=== PATIENT | female | born 1980 | race Caucasian/White ===

== ENCOUNTER → 2018-10-15 15:49 | Outpatient (CLI) | payer OTHER, MEDICAID, SELFPAY ==
[2018-10-15 16:12] LABS: Appearance Urine UA SL CLOUDY; Bilirubin Urine UA NEGATIVE (NEGATIVE); Color Urine UA YELLOW; Glucose Urine UA 2+ g/dL (Negative); Ketones Urine UA NEGATIVE (NEGATIVE); Leukocyte Esterase Urine UA TRACE (NEGATIVE); Nitrite Urine UA NEGATIVE (Negative); Occult Blood Urine UA TRACE-LYSED (Negative); Protein Urine UA TRACE (Negative); Specific Gravity Urine UA 1.025 (1.000-1.035); Urobilinogen Urine UA 0.2 E.U./dL (0.2); pH Urine UA 5.5 (4.5-8.0)
[2018-10-15 16:17] LABS: RBC Urine 1-5/HPF (0-5/HPF); Squamous Epithelial Cell Urine 10-30 /HPF; WBC Urine 30-100/HPF (0-5/HPF)
[2018-10-15 16:18] LABS: Bacteria Urine Moderate (10-30); Culture Indicated Urine Cult Not Indicated
== END ==
PROVIDERS: Family Provider Family Medicine; PCP Family Medicine; Visit Provider Family Medicine
DX: R30.0 Dysuria (principal)
CPT/HCPCS: 81003; 81015

== ENCOUNTER → 2019-09-16 11:45 | Outpatient (CLI) | payer OTHER, MEDICAID, SELFPAY ==
[2019-09-16 12:45] LABS: Add Manual Diff / Slide Review NO; Basophils Absolute Auto 0 /uL (0-100); Basophils Percent Auto 0.9 % (0-2); Eosinophils Absolute Auto 0 /uL (0-450); Hematocrit 35.3 % (36-46); Hemoglobin 12.2 g/dL (12.0-16.0); Lymphocytes Absolute Auto 1500 /uL (1100-4500); Lymphocytes Percent Auto 41.3 % (25-40); Mean Corpuscular HGB Conc 34.4 % (30-36); Mean Corpuscular Hemoglobin 29.7 PG (26-34); Mean Corpuscular Volume 86.3 fL (80-100); Monocytes Absolute Auto 200 /uL (0-900); Monocytes Percent Auto 5.6 % (3-14); Neutrophils Absolute Auto 1900 /uL (1500-7000); Neutrophils Percent Auto 51.2 % (50-75); Platelet Count 213 X10^3/uL (150-400); Red Blood Cell Count 4.09 X10^6/uL (4.0-5.2); White Blood Cell Count 3.7 X10^3/uL (4.5-11.0)
[2019-09-16 13:09] LABS: Alanine Aminotransferase 25 IU/L (<35); Albumin 4.6 g/dL (3.5-5.0); Albumin Globulin Ratio 1.6 (1.0-2.8); Alkaline Phosphatase 86 U/L (38-126); Aspartate Aminotransferase 32 IU/L (14-36); Bilirubin Total 0.5 mg/dL (0.2-1.3); Blood Urea Nitrogen 14 mg/dL (7-17); Calcium 9.6 mg/dL (8.4-10.2); Carbon Dioxide 30 mmol/L (22-32); Chloride 102 mmol/L (98-107); Cholesterol 277 mg/dL (140-199); Estimated Glomerular Filt Rate > 60.0 mL/min (>60); Globulin 2.9 g/dL (1.7-4.1); Glucose 151 mg/dL (70-100); HDL Cholesterol 64 mg/dL (40-60); HEMOLYSIS < 15 (0-50); LDL Cholesterol Calculated 147 mg/dL (<100); Potassium 5.2 mmol/L (3.4-5.1); Sodium 142 mmol/L (137-145); Total Protein 7.5 g/dL (6.3-8.2); Triglycerides 328 mg/dL (35-150)
[2019-09-16 13:37] LABS: Thyroid Stimulating Hormone 1.05 uIU/mL (0.47-4.68)
== END ==
PROVIDERS: PCP Hospitalist; Visit Provider Hospitalist
DX: F31.30 Bipolar disorder, current episode depressed, mild or moderate severity, unspecified (principal); R74.8 Abnormal levels of other serum enzymes
CPT/HCPCS: 36415; 80053; 80061; 84443; 85025

== ENCOUNTER 2020-03-17 14:51 | Emergency (ER) | payer OTHER, MEDICAID, SELFPAY ==
[2020-03-17 14:57] VITALS: BP 166/89; PULSE 94; RESP 16; TEMP 36; O2SAT 97; BMI 47.0
[2020-03-17 16:04] LABS: Add Manual Diff / Slide Review NO; Basophils Absolute Auto 100 /uL (0-100); Basophils Percent Auto 0.7 % (0-2); Eosinophils Absolute Auto 0 /uL (0-450); Eosinophils Percent Auto 0.1 % (2-4); Hematocrit 34.8 % (36-46); Lymphocytes Absolute Auto 1100 /uL (1100-4500); Lymphocytes Percent Auto 14.7 % (25-40); Mean Corpuscular HGB Conc 34.5 % (30-36); Mean Corpuscular Hemoglobin 29.8 PG (26-34); Mean Corpuscular Volume 86.3 fL (80-100); Monocytes Absolute Auto 300 /uL (0-900); Monocytes Percent Auto 3.4 % (3-14); Neutrophils Absolute Auto 6000 /uL (1500-7000); Neutrophils Percent Auto 81.1 % (50-75); Platelet Count 256 X10^3/uL (150-400); Red Blood Cell Count 4.03 X10^6/uL (4.0-5.2); White Blood Cell Count 7.5 X10^3/uL (4.5-11.0)
[2020-03-17 16:13] LABS: INR 1.1 (0.9-1.3); Prothrombin Time 12.1 SECONDS (10.1-12.7)
[2020-03-17 16:16] LABS: PTT Partial Thromboplastin Tim 31 SECONDS (26.4-36.2)
[2020-03-17 16:17] LABS: Alanine Aminotransferase 37 IU/L (<35); Albumin 4.4 g/dL (3.5-5.0); Albumin Globulin Ratio 1.3 (1.0-2.8); Alkaline Phosphatase 111 U/L (38-126); Aspartate Aminotransferase 45 IU/L (14-36); BUN Creatinine Ratio 19.6 (6-22); Blood Urea Nitrogen 10 mg/dL (7-17); Calcium 8.9 mg/dL (8.4-10.2); Carbon Dioxide 24 mmol/L (22-32); Chloride 97 mmol/L (98-107); Estimated Glomerular Filt Rate > 60.0 mL/min (>60); Globulin 3.3 g/dL (1.7-4.1); Glucose 186 mg/dL (70-100); HEMOLYSIS < 15 (0-50); Lipase 282 U/L (23-300); Potassium 3.9 mmol/L (3.4-5.1); Sodium 131 mmol/L (137-145); Total Protein 7.7 g/dL (6.3-8.2)
--- NOTE | 2020-03-17 18:15 | ED_ITS ---
HPI - Abdominal Pain General Chief Complaint: Abdominal Pain Stated Complaint: ABD PAIN Time Seen by Provider: 03/17/20 18:12 History of Present Illness HPI narrative: 39-year-old woman presents with epigastric and upper abdominal pain present for 24 hours getting worse. It started last night after she had a Elizabeth. She had some emesis secondary to the severity of pain there is no blood or coffee-ground material in the emesis(nausea nor does she describe a history of GI bleeding). She notes she has also had some diarrhea that has been yellowish. 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 She states she has had a cholecystectomy. Related Data Previous Rx's Medication Instructions Recorded citalopram 40 mg tablet 40 mg PO QDAY #30 tab 04/24/19 hydroxyzine HCl 25 mg tablet 25 mg PO TID PRN #90 tab 10/28/19 lamotrigine 100 mg tablet 100 mg PO BID #180 tab 02/26/20 omeprazole 40 mg PO BID #60 cap 03/17/20 Allergies Allergy/AdvReac Type Severity Reaction Status Date / Time No Known Allergies Allergy Verified 03/17/20 18:19 Review of Systems Review of Systems Narrative: Pertinent positive and negative findings as per HPI Remainder of review of systems is otherwise unremarkable for Constitutional: Fevers, chills, weakness ENT: No sore throat, neck pain, ear pain CV: Chest pain, palpitations, dyspnea on exertion Respiratory: Cough, wheeze, dyspnea : Dysuria, hematuria, flank pain MS: Muscle weakness, numbness, joint swelling or warmth Skin: Rashes, nonhealing lesions Neuro: Syncope, dizziness, tingling Endocrine: Fatigue, heat or cold intolerance, very dry skin Heme: Easy bruising or bleeding Patient History Medical History Bipolar disorder (Chronic) Chicken pox (Chronic 1988) Depression (Chronic) GERD (gastroesophageal reflux disease) (Chronic) Pancreatitis (Chronic ~2011) Situational anxiety (Acute) Substance abuse (Chronic) Surgical History Anesthesia (Resolved) Status post delivery (Resolved 06/01/01) Status post delivery (Resolved 11/06/14) Status post cholecystectomy (Resolved 2011) Family History Brother Age: 33 Mental health problem Bipolar disorder Father Cancer Mental health problem Liver cancer Bipolar disorder Grandmother Age: 79 Hypertension High cholesterol Mother Age: 56 Hypertension High cholesterol Grandfather Cancer Colon cancer Grandmother Cancer Breast cancer Grandfather COPD (chronic obstructive pulmonary disease) Social History Smoking Status: Never smoker Smoking Status: Never smoker alcohol intake frequency: holidays/special occasions only Substance Use Type: does not use Exam Narrative Exam Narrative: General: Healthy appearing, in no acute distress. Able to give a complete and coherent history. Well-nourished well-developed HEENT: Moist mucous membranes, normal sclera with reactive pupils, Neck: No JVD, supple Respiratory: Lungs are clear to auscultation, no wheezing no rales no rhonchi. Full and symmetrical air movement Cardiac: Regular rate and rhythm no murmurs no bruits Abdomen: Soft , significantly tender epigastrium and entire upper quadrants. good bowel tones, no flank pain Skin: Warm and dry, no rashes Neurologic: Grossly neurologically intact with no obvious asymmetries or abnormalities Extremities: No trauma, well perfused Psych: Cooperative, appropriate insight and affect Initial Vital Signs Initial Vital Signs: Vital Signs Temperature 96.8 F L 03/17/20 14:57 Pulse Rate 94 H 03/17/20 14:57 Respiratory Rate 16 03/17/20 14:57 Blood Pressure 166/89 H 03/17/20 14:57 Pulse Oximetry 97 03/17/20 14:57 Course Orders Ordered: ED Orders 03/17/20 15:00 EKG-12 Lead Stat 03/17/20 15:54 Complete Blood Count AUTO DIFF Stat Comprehensive Metabolic Panel Stat Lipase Stat Partial Thromboplastin Time Stat Prothrombin Time INR Stat 03/17/20 19:24 Urinalysis and Microscopic Stat Urine Culture Stat 03/17/20 20:02 CT abdomen pelvis w con Stat Discontinued Medications Al Hydrox/Mg Hydrox/Simethicone 20 ml/ Lidocaine HCl 15 ml 0 ml PO NOW ONE Stop: 03/17/20 18:16 Last Admin: 03/17/20 18:44 Dose: 35 ml Documented by: DALE Hydromorphone HCl (Dilaudid) 0.5 mg IV NOW ONE Stop: 03/17/20 19:08 Last Admin: 03/17/20 19:21 Dose: 0.5 mg Documented by: DALE Hydromorphone HCl (Dilaudid) 1 mg IV NOW ONE Stop: 03/17/20 20:00 Last Admin: 03/17/20 20:09 Dose: 1 mg Documented by: MARY Sodium Chloride (Normal Saline 0.9%) 1,000 mls @ 1,000 mls/hr IV BOLUS ONE Stop: 03/17/20 20:08 Last Admin: 03/17/20 19:21 Dose: 1,000 mls/hr Documented by: DALE Ondansetron HCl (Zofran) 4 mg IV NOW ONE Stop: 03/17/20 19:10 Last Admin: 03/17/20 19:21 Dose: 4 mg Documented by: DALE Pantoprazole Sodium (Protonix) 40 mg IV NOW ONE Stop: 03/17/20 19:22 Last Admin: 03/17/20 20:09 Dose: 40 mg Documented by: MARY Vital Signs Vital signs: Vital Signs - 8 hr 03/17/20 14:57 03/17/20 18:42 Temperature 96.8 F L Pulse Rate 94 H 80 Respiratory Rate 16 16 Blood Pressure 166/89 H Blood Pressure [Right Arm] 160/79 H Pulse Oximetry 97 96 MDM - Abdominal Pain Medical Records Attestation: I reviewed the patient's medical records. Lab Data Attestation: I reviewed the patient's lab results. Result diagrams: 03/17/20 15:54 03/17/20 15:54 Labs: Lab Results 03/17/20 03/17/20 03/17/20 Range/Units 15:54 15:54 15:54 WBC 7.5 (4.5-11.0) X10^3/uL RBC 4.03 (4.0-5.2) X10^6/uL Hgb 12.0 (12.0-16.0) g/dL Hct 34.8 L (36-46) % MCV 86.3 (80-100) fL MCH 29.8 (26-34) PG MCHC 34.5 (30-36) % RDW 14.0 (11.6-14.8) % Plt Count 256 (150-400) X10^3/uL Neut % (Auto) 81.1 H (50-75) % Lymph % (Auto) 14.7 L (25-40) % [place] % (Auto) 3.4 (3-14) % Eos % (Auto) 0.1 L (2-4) % Baso % (Auto) 0.7 (0-2) % Neut # (Auto) 6000 (2680-1427) /uL Lymph # (Auto) 1100 (2601-7863) /uL [place] # (Auto) 300 (0-900) /uL Eos # (Auto) 0 (0-450) /uL Baso # (Auto) 100 (0-100) /uL PT 12.1 (10.1-12.7) SECONDS INR 1.1 (0.9-1.3) APTT 31 (26.4-36.2) SECONDS Sodium 131 L (137-145) mmol/L Potassium 3.9 (3.4-5.1) mmol/L Chloride 97 L (98-107) mmol/L Carbon Dioxide 24 (22-32) mmol/L BUN 10 (7-17) mg/dL Creatinine 0.51 L (0.52-1.04) mg/dL Estimated GFR > 60.0 (>60) mL/min BUN/Creatinine Ratio 19.6 (6-22) Glucose 186 H (70-100) mg/dL Calcium 8.9 (8.4-10.2) mg/dL Total Bilirubin 1.0 (0.2-1.3) mg/dL AST 45 H (14-36) IU/L ALT 37 H (<35) IU/L Alkaline Phosphatase 111 (38-126) U/L Total Protein 7.7 (6.3-8.2) g/dL Albumin 4.4 (3.5-5.0) g/dL Globulin 3.3 (1.7-4.1) g/dL Albumin/Globulin Ratio 1.3 (1.0-2.8) Lipase 282 (23-300) U/L Urine Color Urine Appearance Urine pH (4.5-8.0) Ur Specific [place] (1.000-1.035) Urine Protein (Negative) Urine Glucose (UA) (Negative) g/dL Urine Ketones (NEGATIVE) Urine Occult Blood (Negative) Urine Nitrate (Negative) Urine Bilirubin (NEGATIVE) Urine Urobilinogen (0.2) E.U./dL Ur Leukocyte Esterase (NEGATIVE) Urine RBC (0-5/HPF) Urine WBC (0-5/HPF) Ur Squamous Epith Cells (0-5/HPF) Urine Bacteria (None) Ur Culture Indicated? 03/17/20 Range/Units 19:24 WBC (4.5-11.0) X10^3/uL RBC (4.0-5.2) X10^6/uL Hgb (12.0-16.0) g/dL Hct (36-46) % MCV (80-100) fL MCH (26-34) PG MCHC (30-36) % RDW (11.6-14.8) % Plt Count (150-400) X10^3/uL Neut % (Auto) (50-75) % Lymph % (Auto) (25-40) % [place] % (Auto) (3-14) % Eos % (Auto) (2-4) % Baso % (Auto) (0-2) % Neut # (Auto) (0164-2727) /uL Lymph # (Auto) (3164-2437) /uL [place] # (Auto) (0-900) /uL Eos # (Auto) (0-450) /uL Baso # (Auto) (0-100) /uL PT (10.1-12.7) SECONDS INR (0.9-1.3) APTT (26.4-36.2) SECONDS Sodium (137-145) mmol/L Potassium (3.4-5.1) mmol/L Chloride (98-107) mmol/L Carbon Dioxide (22-32) mmol/L BUN (7-17) mg/dL Creatinine (0.52-1.04) mg/dL Estimated GFR (>60) mL/min BUN/Creatinine Ratio (6-22) Glucose (70-100) mg/dL Calcium (8.4-10.2) mg/dL Total Bilirubin (0.2-1.3) mg/dL AST (14-36) IU/L ALT (<35) IU/L Alkaline Phosphatase (38-126) U/L Total Protein (6.3-8.2) g/dL Albumin (3.5-5.0) g/dL Globulin (1.7-4.1) g/dL Albumin/Globulin Ratio (1.0-2.8) Lipase (23-300) U/L Urine Color Yellow Urine Appearance Clear Urine pH 5.0 (4.5-8.0) Ur Specific [place] >=1.030 H (1.000-1.035) Urine Protein 1+ H (Negative) Urine Glucose (UA) Negative (Negative) g/dL Urine Ketones 1+ H (NEGATIVE) Urine Occult Blood Negative (Negative) Urine Nitrate Positive H (Negative) Urine Bilirubin Negative (NEGATIVE) Urine Urobilinogen 0.2 (0.2) E.U./dL Ur Leukocyte Esterase Negative (NEGATIVE) Urine RBC None seen (0-5/HPF) Urine WBC 1-5/hpf (0-5/HPF) Ur Squamous Epith Cells 1-5 /hpf D (0-5/HPF) Urine Bacteria Many (>30) H (None) Ur Culture Indicated? Specimen cultured Suspect urinalysis is simply a dirty catch and does not resist represent a UTI. Will not treat until cultures suggest antibiotics were needed Imaging Data CT scan - abdomen/pelvis: Radiologist's Impression: IMPRESSION: 1. No evidence acute abdominal process. 2. Remote cholecystectomy. 3. Focal changes of chronic pancreatitis involving the uncinate process of the pancreas. 4. Incidental note made of right colonic and transverse colonic fat deposition, suggesting reaction to a chronic inflammatory process. Dictated by: Kyle Peraza M.D. on 03/17/2020 at 20:38 MDM Narrative Medical decision making narrative: 8:00 p.m. patient is reexamined. Labs are unremarkable however her exam remains quite impressive. Half a mg of Dilaudid and a GI cocktail have not influenced her pain. She still has severe epigastric and left upper quadrant pain with moderate right upper quadrant pain. Manipulation of any of the lower portions of the abdomen causes pain to radiate up into the epigastrium. She is beginning to develop some guarding over the epigastrium as well. Will offer additional pain medication and CT scan of the abdomen. CT scan is unremarkable. No evidence of posterior penetrating ulcer free air, acute pancreatitis, pancreatic mass or tumor, acute liver abnormality or retained stone after remote cholecystectomy. Patient is safe for home discharge will send her home with a prepack of [place] for this severe pain and also start her on proton pump inhibitor and recommend close follow-up with her primary care physician. Discharge Plan Departure Patient Disposition: Home Clinical Impression: Abdominal pain Qualifiers: Abdominal location: epigastric Qualified Code(s): R10.13 - Epigastric pain Instructions: DI for Peptic Ulcer Activity Restrictions/Additional Instructions: Thank you for coming in today. Your workup did not reveal any life-threatening issues. Specifically there is no acute pancreatitis, no bowel blockages or infection, and no stomach ulcers that have penetrated all the way through the wall of the stomach. I suspect that your pain is related to your stomach and you may be developing an ulcer. I am going to send you home with small supply of hydrocodone, narcotic pain medication, to help with the acute pain. please be aware that this will absolutely causes constipation so make sure your taking stool softeners and adding extra water. To help reduce acid in her stomach so your stomach can begin to heal itself more efficiently I am going to suggest that you take omeprazole 40 mg, twice a day for 2 weeks and then decreasing to once daily after that. This prescription has been electronically transmitted to [facility] for you today Please follow-up with Dr. Dumont early next week to make sure that you are improving. If you are not the next step in the workup may be a referral to gastroenterology for consideration of an upper endoscopy to actually look down your throat and into your stomach. If you have more issues, concerns, notice black or bloody vomiting or black or bloody stool you do need to return to the emergency department. I hope you feel better Prescriptions: New omeprazole 40 mg capsule,delayed release(DR/EC) 40 mg PO BID Qty: 60 RF: 0 No Action lamotrigine [Lamictal] 100 mg tablet 100 mg PO BID Qty: 180 RF: 0 hydroxyzine HCl 25 mg tablet 25 mg PO TID PRN (Reason: anxiety) Qty: 90 RF: 1 citalopram 40 mg tablet 40 mg PO QDAY Qty: 30 RF: 11 Referrals: Yanick uDmont DO [Primary Care Provider] -
[2020-03-17 18:42] VITALS: BP 160/79; PULSE 80; RESP 16; O2SAT 96
[2020-03-17] MEDS: MAG HYDROX/ALUMINUM/SIMETH SUS 20 ML, LIDOCAINE VISCOUS 2% 15 ML PO (18:44)
[2020-03-17] MEDS: SODIUM CHLORIDE 0.9% 1,000 ML 1000 ML IV (19:21)
[2020-03-17] MEDS: ONDANSETRON 4 MG/2 ML INJ IV (19:21)
[2020-03-17] MEDS: HYDROMORPHONE 0.5 MG INJ IV (19:21)
[2020-03-17 19:30] LABS: RBC Urine None Seen (0-5/HPF)
[2020-03-17 19:31] LABS: Appearance Urine UA CLEAR; Bilirubin Urine UA NEGATIVE (NEGATIVE); Color Urine UA YELLOW; Glucose Urine UA NEGATIVE (Negative); Ketones Urine UA 1+ (NEGATIVE); Leukocyte Esterase Urine UA NEGATIVE (NEGATIVE); Nitrite Urine UA POSITIVE (Negative); Occult Blood Urine UA NEGATIVE (Negative); Protein Urine UA 1+ (Negative); Specific Gravity Urine UA >=1.030 (1.000-1.035); Urobilinogen Urine UA 0.2 E.U./dL (0.2)
[2020-03-17 19:37] LABS: Bacteria Urine Many (>30); Culture Indicated Urine Specimen Cultured; Squamous Epithelial Cell Urine 1-5 /HPF (0-5/HPF); WBC Urine 1-5/HPF (0-5/HPF)
--- NOTE | 2020-03-17 20:02 | DI.CT.S_ITS ---
PROCEDURE: CT ABDOMEN PELVIS W CON INDICATIONS: severe upper abdominal pain TECHNIQUE: After the administration of intravenous contrast, 5 mm thick sections acquired from the diaphragm to the symphysis. 5 mm coronal and sagittal reformats were acquired. For radiation dose reduction, the following was used: automated exposure control, adjustment of mA and/or kV according to patient size. COMPARISON: None. FINDINGS: Image quality: Excellent. ABDOMEN: Lung bases: Lung bases are clear. Heart size is normal. Solid organs: Liver is normal in size and enhancement. Gallbladder is surgically absent. Biliary system is non dilated. Pancreas enhances normally. Focal chronic pancreatitis involving the uncinate process of the pancreas. Spleen is normal in size and enhancement. No adrenal nodules. Kidneys demonstrate normal size and enhancement, without hydronephrosis. Peritoneum and bowel: Bowel loops demonstrate normal wall thickness and caliber. No free fluid or air. Note is made of diffuse fat deposition present in the cecum and ascending colon and transverse colon suggesting chronic inflammatory change. Nodes and vessels: No retroperitoneal or mesenteric adenopathy by size criteria. Aorta and inferior vena cava are normal in size. Miscellaneous: No ventral hernias. PELVIS: Genitourinary: Bladder wall thickness is normal. Miscellaneous: No inguinal hernias or adenopathy. Bones: No suspicious bony lesions. No vertebral body compression fractures. IMPRESSION: 1. No evidence acute abdominal process. 2. Remote cholecystectomy. 3. Focal changes of chronic pancreatitis involving the uncinate process of the pancreas. 4. Incidental note made of right colonic and transverse colonic fat deposition, suggesting reaction to a chronic inflammatory process. Dictated by: Kyle Peraza M.D. on 03/17/2020 at 20:38 Approved by: Kyle Peraza M.D. on 03/17/2020 at 20:46
[2020-03-17] MEDS: HYDROMORPHONE 1 MG INJ IV (20:09)
[2020-03-17] MEDS: PANTOPRAZOLE 40 MG VIAL IV (20:09)
[2020-03-17] MEDS: HYDROCODONE/ACET 5/325 PREPACK 1 BOTTLE MISC (21:46)
[2020-03-17 21:50] VITALS: BP 160/94; PULSE 85; RESP 16; O2SAT 97
== END 2020-03-17 21:50 | disposition home or self-care (01) ==
PROVIDERS: Emergency Medicine; Emergency Provider Emergency Medicine; PCP Family Medicine
DX: R10.13 Epigastric pain (principal); R10.12 Left upper quadrant pain; R07.9 Chest pain, unspecified
CPT/HCPCS: 36415; 74177; 80053; 81001; 83690; 85025; 85610; 85730; 87077; 87086; 87186; 93005; 96361; 96374; 96375; 96376; 99284; C9113; J1170; J2405

== ENCOUNTER 2020-03-18 06:40 | Emergency (ER) | payer OTHER, MEDICAID, SELFPAY ==
[2020-03-18 06:50] VITALS: BP 148/67; PULSE 94; RESP 16; TEMP 36.2; O2SAT 96; BMI 47.0
[2020-03-18] MEDS: SODIUM CHLORIDE 0.9% 1,000 ML 1000 ML IV ×2 (07:13→08:39)
[2020-03-18] MEDS: ONDANSETRON 4 MG/2 ML INJ IV ×2 (07:13→10:06)
--- NOTE | 2020-03-18 07:18 | ED_ITS ---
HPI - Abdominal Pain General Chief Complaint: Abdominal Pain Stated Complaint: mid abd pain/vomiting blood 8-10 pain/here 03/17 Time Seen by Provider: 03/18/20 06:46 Source: patient Mode of arrival: Family Vehicle Limitations: no limitations History of Present Illness HPI narrative: CC:Abdominal Pain HPI: The patient is a 39-year-old female who was here yesterday complaining of severe abdominal pain. She was told that she did not have pancreatitis yesterday. Her lipase was within normal limits. The patient states that her pain has gotten progressively worse and is at least 2 times as intense as yesterday. She complains that the pain is a grabbing squeezing crampy pain in her epigastrium and mid abdomen that radiates straight 3 2 her back. She states that the pain his 7 to 8/10 in intensity. It feels identical to her previous episodes of pancreatitis. She has had nausea and vomiting with multiple e pisodes of vomiting including retching with dry heaves. A few episodes of vomiting has been blood tinged consistent with Barbara-Maldonado tear. She last ate on Saturday and she stated that her last drink of alcohol was on . She came in because of the worsening pain and discomfort in the persistent nausea and vomiting. Studies performed yesterday on March 17 revealed a white blood count of 7.5, hemoglobin 12.0, hematocrit 34.8, 81.1% neutrophils. Protime 12.1 seconds INR 1.1, PTT 31 seconds, sodium 131, potassium 3.9, chloride 97, CO2 24, BUN 10, glucose 186, creatinine 0.5, Bilirubin 1.0, AST 45, ALT 37, alk-phos 111, lipase 282. Urinalysis revealed a specific gravity of 1.030 urine nitrate positive wbc's 1-5 per high-power field many bacteria. Culture and sensitivity pending. CT abdomen revealed: 1. No acute abdominal process appreciated. 2. Remote cholecystectomy 3. Focal changes of chronic pancreatitis involving the uncinate process of the pancreas. 4. Indirect note made of bright: Transverse colonic fat deposition suggestive of a reaction to chronic inflammatory process. 0957: The patient's 2nd L of fluid has been administered to the patient and the patient will be discharged home. The patient informed the nurse that she was still having abdominal pain and having nausea and vomiting. She will be administered 0.5 mg of Dilaudid, 25 mg of Benadryl IV and 4 mg of Zofran. The patient's laboratory tests and workup is completely normal and negative at this time. Related Data Previous Rx's Medication Instructions Recorded citalopram 40 mg tablet 40 mg PO QDAY #30 tab 04/24/19 hydroxyzine HCl 25 mg tablet 25 mg PO TID PRN #90 tab 10/28/19 lamotrigine 100 mg tablet 100 mg PO BID #180 tab 02/26/20 omeprazole 40 mg PO BID #60 cap 03/17/20 dicyclomine 20 mg PO QID #20 tab 03/18/20 diphenhydramine HCl [Benadryl] 25 mg PO Q6H PRN #20 cap 03/18/20 hydrocodone-acetaminophen [[place]] 1 tab PO Q4-6H PRN #12 tab 03/18/20 ondansetron HCl [Zofran] 4 mg PO Q6H PRN #12 tab 03/18/20 sucralfate [Carafate] 10 ml PO QID #420 ml 03/18/20 Allergies Allergy/AdvReac Type Severity Reaction Status Date / Time No Known Allergies Allergy Verified 03/17/20 18:19 Review of Systems Review of Systems Narrative: REVIEW OF SYSTEMS: CONSTITUTIONAL: She states that her pain is worse today than it was yesterday at least 2 times. It feels identical to her previous pancreatitis. She denies any fever but has had chills and sweats especially with vomiting. NEUROLOGICAL: She complains of a mild headache but has had no numbness tingling paresthesias anesthesia is or paresis. EENT: She denies any sinus congestion loss of vision change in vision sore throat. CARDIO-PULMONARY: She denies any shortness of breath cough the vomiting ENDOCRINE: The patient denies being on any hormones and has had a tubal ligation and has been amenorrheic without a menstrual period for the last 3 months. GASTROINTESTINAL: She has had severe epigastric abdominal pain that feels i dentical to her previous pancreatitis with persistent recurrent nausea vomiting with dry heaves and blood tinged emesis. GENITAL URINARY: She denies any dysuria pyuria frequency or urgency. She actu ally states that she has not been drinking fluids and said decreased urination. MUSCULOSKELETAL/ RHEUMATOLOGICAL: She complains of mid back pain. DERMATOLOGICAL: She has had no rash bruising or bleeding. Patient History Medical History Bipolar disorder (Chronic) Chicken pox (Chronic 1988) Depression (Chronic) GERD (gastroesophageal reflux disease) (Chronic) Pancreatitis (Chronic ~2011) Situational anxiety (Acute) Substance abuse (Chronic) Surgical History Anesthesia (Resolved) Status post delivery (Resolved 06/01/01) Status post delivery (Resolved 11/06/14) Status post cholecystectomy (Resolved 2011) Family History Brother Age: 33 Mental health problem Bipolar disorder Father Cancer Mental health problem Liver cancer Bipolar disorder Grandmother Age: 79 Hypertension High cholesterol Mother Age: 56 Hypertension High cholesterol Grandfather Cancer Colon cancer Grandmother Cancer Breast cancer Grandfather COPD (chronic obstructive pulmonary disease) Social History Smoking Status: Never smoker Smoking Status: Never smoker alcohol intake frequency: holidays/special occasions only Substance Use Type: does not use Exam Narrative Exam Narrative: PHYSICAL EXAM: CONSTITUTIONAL: Awake, Alert, Oriented, Coherent, Cooperative in moderate. Does not appear toxic or ill. HEAD: AT/NC EENT: PERRL, FROM of eyes, no discharge, no nystagmus MOUTH:wearing mask. NECK: Supple, no obvious JVD, Trachea is midline without stridor, no palpable LN. SPINE: Palpationof the cervical, or Sacral spine reveals no gross deformity or tenderness. There is mild tenderness diffusely to palpation along the mid lower thoracic spine and upper lumbar spine. There is no bony deformity. No paraspinous muscle tenderness. No CVA tenderness. THORAX: No deformity, retractions, chest wall tenderness. LUNGS: Clear, symmetrical breath sounds without respiratory distress. HEART: Normal heart tones, regular rhythm and rate without murmur. ABDOMEN: Abdomen is soft and most tender in the epigastrium and medial left upper quadrant over the area of the pancreas. There is no guarding rebound or rigidity. There is no palpable mass or of Brittany megaly.. LYMPHATIC: no palpable spleen. EXTREMITIES: No edema, deformity, tenderness or cyanosis. SKIN: No rash, bruising, petechiae or purpura. NEURO: Awake, alert, oriented, conversive, cranial nerves II-XII are symmetrical , moves all 4 extremities and is ambulatory. MENTAL HEALTH: She appears anxious . Initial Vital Signs Initial Vital Signs: Vital Signs Temperature 97.2 F L 03/18/20 06:50 Pulse Rate 94 H 03/18/20 06:50 Respiratory Rate 16 03/18/20 06:50 Blood Pressure 148/67 H 03/18/20 06:50 Pulse Oximetry 96 03/18/20 06:50 Course Course Course Narrative: 08 the patient's chest x-ray is negative for any acute consolidation or aspiration pneumonia. Her mediastinal contours are normal and there is no evidence of Boerhaave syndrome. The patient's liver functions as well as lipase has improved compared to yesterday. The patient will be discharged after being administered IV fluid for rehydration. She will be administered 2 L of fluid. She has not vomited since she has been here in the emergency department. Orders Ordered: Discontinued Medications Dicyclomine HCl (Bentyl) 20 mg PO NOW ONE Stop: 03/18/20 08:23 Last Admin: 03/18/20 08:38 Dose: 20 mg Documented by: NICO Diphenhydramine HCl (Benadryl) 25 mg IV NOW ONE Stop: 03/18/20 09:57 Last Admin: 03/18/20 10:05 Dose: 25 mg Documented by: TRAYOTEM Hydromorphone HCl (Dilaudid) 1 mg IV NOW ONE Stop: 03/18/20 07:40 Last Admin: 03/18/20 08:02 Dose: 1 mg Documented by: NICO Hydromorphone HCl (Dilaudid) 0.5 mg IV NOW ONE Stop: 03/18/20 09:57 Last Admin: 03/18/20 10:05 Dose: 0.5 mg Documented by: JANNY Sodium Chloride (Normal Saline 0.9%) 1,000 mls @ 1,000 mls/hr IV BOLUS ONE Stop: 03/18/20 07:45 Last Infusion: 03/18/20 08:15 Dose: 0 mls/hr Documented by: Admin: 03/18/20 07:13 Dose: 1,000 mls/hr Documented by: NICO Sodium Chloride (Normal Saline 0.9%) 1,000 mls @ 1,000 mls/hr IV BOLUS ONE Stop: 03/18/20 09:21 Last Infusion: 03/18/20 09:37 Dose: 0 mls/hr Documented by: Admin: 03/18/20 08:39 Dose: 1,000 mls/hr Documented by: NICO Ondansetron HCl (Zofran) 4 mg IV NOW ONE Stop: 03/18/20 06:53 Last Admin: 03/18/20 07:13 Dose: 4 mg Documented by: NICO Ondansetron HCl (Zofran) 4 mg IV NOW ONE Stop: 03/18/20 09:57 Last Admin: 03/18/20 10:06 Dose: 4 mg Documented by: JANNY Sucralfate (Carafate) 1 gm PO ACHS YANELIS Last Admin: 03/18/20 08:53 Dose: 1 gm Documented by: NICO Vital Signs Vital signs: Vital Signs - 8 hr 03/18/20 06:50 03/18/20 08:08 03/18/20 08:57 Temperature 97.2 F L Pulse Rate 94 H 88 93 H Respiratory Rate 16 16 16 Blood Pressure 148/67 H Blood Pressure [Left Arm] 150/79 H 153/82 H Pulse Oximetry 96 98 96 MDM - Abdominal Pain Medical Records Attestation: I reviewed the patient's medical records. Lab Data Attestation: I reviewed the patient's lab results. Result diagrams: 03/18/20 07:30 03/18/20 07:30 Labs: Lab Results 03/18/20 03/18/20 03/18/20 Range/Units 07:30 07:30 07:30 WBC 8.9 (4.5-11.0) X10^3/uL RBC 3.89 L (4.0-5.2) X10^6/uL Hgb 11.6 L (12.0-16.0) g/dL Hct 34.0 L (36-46) % MCV 87.4 (80-100) fL MCH 29.9 (26-34) PG MCHC 34.2 (30-36) % RDW 13.8 (11.6-14.8) % Plt Count 222 (150-400) X10^3/uL Neut % (Auto) 91.0 H (50-75) % Lymph % (Auto) 6.4 L (25-40) % Garrett % (Auto) 2.2 L (3-14) % Eos % (Auto) 0.0 L (2-4) % Baso % (Auto) 0.4 (0-2) % Neut # (Auto) 8100 H (3334-0067) /uL Lymph # (Auto) 600 L (4098-1373) /uL Garrett # (Auto) 200 (0-900) /uL Eos # (Auto) 0 (0-450) /uL Baso # (Auto) 0 (0-100) /uL Sodium 129 L (137-145) mmol/L Potassium 3.9 (3.4-5.1) mmol/L Chloride 97 L (98-107) mmol/L Carbon Dioxide 21 L (22-32) mmol/L BUN 5 L (7-17) mg/dL Creatinine 0.45 L (0.52-1.04) mg/dL Estimated GFR > 60.0 (>60) mL/min BUN/Creatinine Ratio 11.1 (6-22) Glucose 283 H (70-100) mg/dL Lactate (0.7-2.1) mmol/L Calcium 8.6 (8.4-10.2) mg/dL Total Bilirubin 1.3 (0.2-1.3) mg/dL AST 34 (14-36) IU/L ALT 32 (<35) IU/L Alkaline Phosphatase 119 (38-126) U/L Lactate Dehydrogenase (313-618) U/L Total Protein 7.5 (6.3-8.2) g/dL Albumin 4.2 (3.5-5.0) g/dL Globulin 3.3 (1.7-4.1) g/dL Albumin/Globulin Ratio 1.3 (1.0-2.8) Lipase (23-300) U/L Urine Color Urine Appearance Urine pH (4.5-8.0) Ur Specific [place] (1.000-1.035) Urine Protein (Negative) Urine Glucose (UA) (Negative) g/dL Urine Ketones (NEGATIVE) Urine Occult Blood (Negative) Urine Nitrate (Negative) Urine Bilirubin (NEGATIVE) Urine Urobilinogen (0.2) E.U./dL Ur Leukocyte Esterase (NEGATIVE) Urine RBC (0-5/HPF) Urine WBC (0-5/HPF) Ur Squamous Epith Cells (0-5/HPF) Urine Bacteria (None) Ur Culture Indicated? Blood Type O Positive Antibody Screen Negative 03/18/20 03/18/20 03/18/20 Range/Units 07:30 07:30 09:40 WBC (4.5-11.0) X10^3/uL RBC (4.0-5.2) X10^6/uL Hgb (12.0-16.0) g/dL Hct (36-46) % MCV (80-100) fL MCH (26-34) PG MCHC (30-36) % RDW (11.6-14.8) % Plt Count (150-400) X10^3/uL Neut % (Auto) (50-75) % Lymph % (Auto) (25-40) % Garrett % (Auto) (3-14) % Eos % (Auto) (2-4) % Baso % (Auto) (0-2) % Neut # (Auto) (6113-9548) /uL Lymph # (Auto) (8328-6028) /uL Garrett # (Auto) (0-900) /uL Eos # (Auto) (0-450) /uL Baso # (Auto) (0-100) /uL Sodium (137-145) mmol/L Potassium (3.4-5.1) mmol/L Chloride (98-107) mmol/L Carbon Dioxide (22-32) mmol/L BUN (7-17) mg/dL Creatinine (0.52-1.04) mg/dL Estimated GFR (>60) mL/min BUN/Creatinine Ratio (6-22) Glucose (70-100) mg/dL Lactate 1.4 (0.7-2.1) mmol/L Calcium (8.4-10.2) mg/dL Total Bilirubin (0.2-1.3) mg/dL AST (14-36) IU/L ALT (<35) IU/L Alkaline Phosphatase (38-126) U/L Lactate Dehydrogenase 449 (313-618) U/L Total Protein (6.3-8.2) g/dL Albumin (3.5-5.0) g/dL Globulin (1.7-4.1) g/dL Albumin/Globulin Ratio (1.0-2.8) Lipase 139 D (23-300) U/L Urine Color Yellow Urine Appearance Clear Urine pH 5.0 (4.5-8.0) Ur Specific [place] 1.020 (1.000-1.035) Urine Protein Negative (Negative) Urine Glucose (UA) 2+ H (Negative) g/dL Urine Ketones 3+ H (NEGATIVE) Urine Occult Blood Negative (Negative) Urine Nitrate Negative (Negative) Urine Bilirubin Negative (NEGATIVE) Urine Urobilinogen 0.2 (0.2) E.U./dL Ur Leukocyte Esterase Negative (NEGATIVE) Urine RBC None seen (0-5/HPF) Urine WBC None seen (0-5/HPF) Ur Squamous Epith Cells 1-5 /hpf (0-5/HPF) Urine Bacteria Occasional (0-1) D (None) Ur Culture Indicated? Cult not indicated Blood Type Antibody Screen MDM Narrative Medical decision making narrative: The patient is a 39-year-old female who presents to the emergency department with recurrent abdominal pain. She was evaluated yesterday and her laboratory studies were noted. The patient was thought to be possibly developing an ulcer and was placed on omeprazole and discharged home. The patient's CT scan revealed that the patient has evidence of chronic pancreatitis. The patient at this time states that her pain feels identical to when she has had acute pancreatitis before. However today, her pain is worse than yesterday however her laboratory tests are all better than yesterday. She states that she has been vomiting blood-tinged emesis and has been retching with dry heaves. This has resulted in a Barbara-Maldonado tear or syndrome. Her chest x-ray did not reveal any evidence of Boerhaave the syndrome or rupture of the esophagus. Theoretically the patient can have pain and discomfort from chronic pancreatitis without evidence of an acute elevation of the lipase. The patient will be discharged home and advised to be seen in follow-up by her primary care physician. She will be given a prescription for Zofran for nausea and vomiting. She has not vomited in the emergency department since she has been administered this. She will be given a prescription for dicyclomine 20 mg 3 times a day for pain and discomfort to help with any biliary or ductal spasms causing pain and discomfort. She will be continued on her omeprazole as an H2 alize and will be given a prescription for Carafate 1 g 4 times a day for pain and discomfort. She will be advised to follow-up with her primary care physician to be re-evaluated and possibly be referred to a consulting database administrator or surgeon for an EGD. The patient will be administered 2 L of fluid in the emergency department and discharged home. Discharge Plan Departure Patient Disposition: Home Clinical Impression: Barbara-Maldonado syndrome Chronic pancreatitis Qualifiers: Pancreatitis type: unspecified pancreatitis type Qualified Code(s): K86.1 - Other chronic pancreatitis Abdominal pain Qualifiers: Abdominal location: epigastric Qualified Code(s): R10.13 - Epigastric pain Nausea & vomiting Qualifiers: Vomiting type: unspecified Vomiting Intractability: non-intractable Qualified Code(s): R11.2 - Nausea with vomiting, unspecified Discharge Date/Time: 03/18/20 10:36 Instructions: DI for Pancreatitis, DI for Gastritis, DI for Abdominal Pain- Adult, DI for Peptic Ulcer, DI for Nausea -- Adult Activity Restrictions/Additional Instructions: 1. Follow-up with your primary care physician in 2-3 days to be re-evaluated and possibly referred to a consulting database administrator or general surgeon for an upper endoscopic study. 2. Return to the emergency department if you develop recurrent persistent abdominal pain with uncontrolled nausea and vomiting, fever, chills, or passing out. 3. Take the Zofran as prescribed for nausea and vomiting. Benadryl 25 mg also helps with nausea and vomiting which can be obtained [id number]. You can take this every 6 hours for nausea and vomiting. You can take Zofran 1-2 tablets for significant episodes of vomiting. 4. Take the Bentyl 20 mg 3 to 4 times a day for abdominal pain which helps with spasms of the ducts causing your pancreatitis. 5. Continue to take the omeprazole which was prescribed yesterday for the possible development of gastritis or an ulcer. Take the Carafate as prescribed 4 times a day as needed for abdominal pain, indigestion, heartburn,. 6. Keep a log or a diary of how often you have the pain and discomfort, what triggers it, what relieves it, how long does the discomfort last so that you can take this record into your primary care physician so that they know how often your having this problem. 7. for severe intolerable pain you can take the [place] tablets 5/325, 1 tablet every 4-6 hours as needed for pain and discomfort. There is no medication that is Magic leak and a take your pain and discomfort completely away. The purpose of the medications is to take the edge off from the pain and discomfort and relieve and make the pain more tolerable until it resolves. Prescriptions: New sucralfate [Carafate] 100 mg/mL suspension 10 ml PO QID Qty: 420 RF: 0 dicyclomine 20 mg tablet 20 mg PO QID Qty: 20 RF: 0 ondansetron HCl [Zofran] 4 mg tablet 4 mg PO Q6H PRN (Reason: nausea and vomiting) Qty: 12 RF: 0 diphenhydramine HCl [Benadryl] 25 mg capsule 25 mg PO Q6H PRN (Reason: nausea and vomiting) Qty: 20 RF: 0 hydrocodone-acetaminophen [[place]] 5-325 mg tablet 1 tab PO Q4-6H PRN (Reason: pain) Qty: 12 RF: 0 No Action lamotrigine [Lamictal] 100 mg tablet 100 mg PO BID Qty: 180 RF: 0 hydroxyzine HCl 25 mg tablet 25 mg PO TID PRN (Reason: anxiety) Qty: 90 RF: 1 citalopram 40 mg tablet 40 mg PO QDAY Qty: 30 RF: 11 omeprazole 40 mg capsule,delayed release(DR/EC) 40 mg PO BID Qty: 60 RF: 0 Referrals: Yanick Dumont DO [Primary Care Provider] -
--- NOTE | 2020-03-18 07:39 | DI.RAD.S_ITS ---
PROCEDURE: XR CHEST 2V INDICATIONS: second visit, persistent wretching with hematemesis TECHNIQUE: 2 views of the chest were acquired. COMPARISON: [facility], , CHEST 2 VIEW, 01/18/2018, 15:31. FINDINGS: Surgical changes and devices: None. Lungs and pleura: Scattered subsegmental atelectasis and/or scarring. No focal consolidation. No pleural effusions or pneumothorax. Mediastinum: Mediastinal contours are normal. Heart size is normal. Bones and chest wall: No suspicious bony abnormalities. Soft tissues appear unremarkable. IMPRESSION: No acute consolidation Dictated by: Marcel Badillo M.D. on 03/18/2020 at 8:13 Approved by: Marcel Badillo M.D. on 03/18/2020 at 8:14
[2020-03-18 07:41] LABS: Add Manual Diff / Slide Review NO; Basophils Absolute Auto 0 /uL (0-100); Basophils Percent Auto 0.4 % (0-2); Eosinophils Absolute Auto 0 /uL (0-450); Hemoglobin 11.6 g/dL (12.0-16.0); Lymphocytes Absolute Auto 600 /uL (1100-4500); Lymphocytes Percent Auto 6.4 % (25-40); Mean Corpuscular HGB Conc 34.2 % (30-36); Mean Corpuscular Hemoglobin 29.9 PG (26-34); Mean Corpuscular Volume 87.4 fL (80-100); Monocytes Absolute Auto 200 /uL (0-900); Monocytes Percent Auto 2.2 % (3-14); Neutrophils Absolute Auto 8100 /uL (1500-7000); Platelet Count 222 X10^3/uL (150-400); Red Blood Cell Count 3.89 X10^6/uL (4.0-5.2); Red Cell Distribution Width 13.8 % (11.6-14.8); White Blood Cell Count 8.9 X10^3/uL (4.5-11.0)
[2020-03-18 07:52] LABS: Lactate (Lactic Acid) 1.4 mmol/L (0.7-2.1)
[2020-03-18 07:53] LABS: Alanine Aminotransferase 32 IU/L (<35); Albumin 4.2 g/dL (3.5-5.0); Albumin Globulin Ratio 1.3 (1.0-2.8); Alkaline Phosphatase 119 U/L (38-126); Aspartate Aminotransferase 34 IU/L (14-36); BUN Creatinine Ratio 11.1 (6-22); Bilirubin Total 1.3 mg/dL (0.2-1.3); Blood Urea Nitrogen 5 mg/dL (7-17); Calcium 8.6 mg/dL (8.4-10.2); Carbon Dioxide 21 mmol/L (22-32); Chloride 97 mmol/L (98-107); Estimated Glomerular Filt Rate > 60.0 mL/min (>60); Globulin 3.3 g/dL (1.7-4.1); Glucose 283 mg/dL (70-100); HEMOLYSIS < 15 (0-50); Lactate Dehydrogenase 449 U/L (313-618); Lipase 139 U/L (23-300); Potassium 3.9 mmol/L (3.4-5.1); Sodium 129 mmol/L (137-145); Total Protein 7.5 g/dL (6.3-8.2)
[2020-03-18] MEDS: HYDROMORPHONE 1 MG INJ IV (08:02)
[2020-03-18 08:08] VITALS: BP 150/79; PULSE 88; RESP 16; O2SAT 98
[2020-03-18] MEDS: DICYCLOMINE 10 MG CAPSULE 20 MG PO (08:38)
[2020-03-18] MEDS: SUCRALFATE 1 GM/10 ML ORAL SUSP PO (08:53)
[2020-03-18 08:57] VITALS: BP 153/82; PULSE 93; RESP 16; O2SAT 96
[2020-03-18 09:47] LABS: RBC Urine None Seen (0-5/HPF); WBC Urine None Seen (0-5/HPF)
[2020-03-18 09:49] LABS: Appearance Urine UA CLEAR; Bilirubin Urine UA NEGATIVE (NEGATIVE); Color Urine UA YELLOW; Glucose Urine UA 2+ g/dL (Negative); Ketones Urine UA 3+ (NEGATIVE); Leukocyte Esterase Urine UA NEGATIVE (NEGATIVE); Nitrite Urine UA NEGATIVE (Negative); Occult Blood Urine UA NEGATIVE (Negative); Protein Urine UA NEGATIVE (Negative); Urobilinogen Urine UA 0.2 E.U./dL (0.2)
[2020-03-18 09:56] LABS: Bacteria Urine Occasional (0-1); Squamous Epithelial Cell Urine 1-5 /HPF (0-5/HPF)
[2020-03-18 09:57] LABS: Culture Indicated Urine Cult Not Indicated
[2020-03-18] MEDS: HYDROMORPHONE 0.5 MG INJ IV (10:05)
[2020-03-18] MEDS: diphenhydrAMINE 50 MG/ML VIAL 25 MG IV (10:05)
[2020-03-18 10:16] VITALS: BP 146/74; PULSE 90; O2SAT 98
== END 2020-03-18 10:36 | disposition home or self-care (01) ==
PROVIDERS: Emergency Medicine; Emergency Provider Emergency Medicine; PCP Family Medicine
DX: K86.1 Other chronic pancreatitis (principal); K22.6 Gastro-esophageal laceration-hemorrhage syndrome; R10.13 Epigastric pain; R10.12 Left upper quadrant pain
CPT/HCPCS: 36415; 71046; 80053; 81001; 83605; 83615; 83690; 85025; 86850; 86900; 86901; 96361; 96374; 96375; 96376; 99284; J1170; J1200; J2405

== ENCOUNTER 2020-04-18 09:06 | Emergency (ER) | payer OTHER, MEDICAID, SELFPAY ==
[2020-04-18] VITALS (11 sets, daily range): BP systolic 122–191; BP diastolic 58–101; PULSE 87–97; RESP 14–32; TEMP 36.6; O2SAT 97–99
--- NOTE | 2020-04-18 09:15 | DI.RAD.S_ITS ---
PROCEDURE: XR CHEST 1V INDICATIONS: chest pain TECHNIQUE: One view of the chest was acquired. COMPARISON: [facility], CR, XR CHEST 2V, 03/18/2020, 7:33. FINDINGS: Surgical changes and devices: None. Lungs and pleura: Mildly increased perihilar lung markings may be present. There is no focal consolidation, effusion, or pneumothorax. Mediastinum: Mediastinal contours appear normal. Heart size is normal. Bones and chest wall: No suspicious bony lesions. Overlying soft tissues appear unremarkable. IMPRESSION: Possible mild pulmonary vascular congestion. No pneumonia. Dictated by: Oscar Cerrato M.D. on 04/18/2020 at 9:06 Approved by: Oscar Cerrato M.D. on 04/18/2020 at 9:07
--- NOTE | 2020-04-18 09:17 | ED_ITS ---
HPI - Chest Pain General Chief Complaint: Chest Pain Stated Complaint: Chest Pain Time Seen by Provider: 04/18/20 09:15 Source: EMS Mode of arrival: EMS Limitations: no limitations History of Present Illness HPI narrative: Patient is a 39-year-old female with history of bipolar presenting with chest heaviness. She says it woke her from her sleep this morning she says all across her chest nonradiating. She denies any provocation or palliation. She denies any shortness of breath nausea or diaphoresis. She has never had anything like this before she feels like her heart is skipping a beat. She is noted to have PVCs on the monitor. She got aspirin with EMS but she says that has not helped much. MD complaint: chest pain Onset (ago): hour(s) Duration: constant Onset: during rest Pain location: substernal Quality: heaviness Relieving factors: nothing Exacerbating factors: nothing Related Data Previous Rx's Medication Instructions Recorded hydroxyzine HCl 25 mg tablet 25 mg PO TID PRN #90 tab 10/28/19 lamotrigine 100 mg tablet 100 mg PO BID #180 tab 02/26/20 omeprazole 40 mg PO BID #60 cap 03/17/20 dicyclomine 20 mg PO QID #20 tab 03/18/20 diphenhydramine HCl [Benadryl] 25 mg PO Q6H PRN #20 cap 03/18/20 hydrocodone-acetaminophen [[place]] 1 tab PO Q4-6H PRN #12 tab 03/18/20 ondansetron HCl [Zofran] 4 mg PO Q6H PRN #12 tab 03/18/20 sucralfate [Carafate] 10 ml PO QID #420 ml 03/18/20 citalopram 40 mg tablet 40 mg PO QDAY #30 tab 03/24/20 Allergies Allergy/AdvReac Type Severity Reaction Status Date / Time No Known Allergies Allergy Verified 04/18/20 09:16 Review of Systems Review of Systems Narrative: GENERAL: Denies chills, fatigue, malaise, fever, sweats, travel HEENT: Denies sinus pain, ear pain, sore throat, difficulty swallowing, neck pain RESPIRATORY: Denies dyspnea, cough, wheezing, hemoptysis, sputum. CARDIOVASCULAR: See HPI GASTROINTESTINAL: Denies nausea, vomiting, abdominal pain, diarrhea, constipation, melena. : Denies dysuria, frequency, incontinence, hematuria, urinary retention, flank pain. MUSCULOSKELETAL: Denies weakness, joint pain, or bony pain SKIN: No rash, no erythema, no pruritus NEUROLOGIC: Denies weakness, dizziness, headache, numbness, change in speech, confusion PSYCHIATRIC: No concerning psychosocial issues. 12 point review of systems is negative except for those stated above and HPI Patient History Medical History Bipolar disorder (Chronic) Chicken pox (Chronic 1988) Depression (Chronic) GERD (gastroesophageal reflux disease) (Chronic) Pancreatitis (Chronic ~2011) Situational anxiety (Acute) Substance abuse (Chronic) Surgical History Anesthesia (Resolved) Status post delivery (Resolved 06/01/01) Status post delivery (Resolved 11/06/14) Status post cholecystectomy (Resolved 2011) Family History Brother Age: 33 Mental health problem Bipolar disorder Father Cancer Mental health problem Liver cancer Bipolar disorder Grandmother Age: 79 Hypertension High cholesterol Mother Age: 56 Hypertension High cholesterol Grandfather Cancer Colon cancer Grandmother Cancer Breast cancer Grandfather COPD (chronic obstructive pulmonary disease) Social History Smoking Status: Never smoker Smoking Status: Never smoker alcohol intake frequency: holidays/special occasions only Substance Use Type: does not use Exam Initial Vital Signs Initial Vital Signs: Vital Signs Pulse Rate 97 H 04/18/20 09:05 Respiratory Rate 23 04/18/20 09:05 Pulse Oximetry 97 04/18/20 09:05 GENERAL: Well-appearing, well-nourished and in no acute distress. HEENT: Head atraumatic,EOMI, pupils reactive, face symmetric, moist mucous membranes CARDIOVASCULAR: Regular rate and rhythm without murmurs, rubs or gallops. RESPIRATORY: Breath sounds equal bilaterally, no wheezes rales or rhonchi. ABDOMEN: Soft, nontender. Normoactive bowel sounds all 4 quadrants. No guarding or rebound. EXTREMITIES: Normal range of motion, no clubbing or edema. Neurovascularly intact NEUROLOGICAL: Alert and oriented x4.Normal gait and speech. Cranial nerves II through XII grossly intact. SKIN: Warm, dry, no laceration, no petechiae, no rashes or lesions. Scores HEART Score Heart Score history: Slightly Suspicious Heart Score EKG: Normal Heart Score Age: < 45 years old Heart Score risk factors: No known risk factors Heart Score troponin: < or = to normal limit Heart Score Total: 0 Course Orders Ordered: ED Orders 04/18/20 09:15 XR chest 1V Stat 04/18/20 09:25 Complete Blood Count AUTO DIFF Stat Comprehensive Metabolic Panel Stat Lipase Stat Troponin & CK Cardiac Panel Stat 04/18/20 11:00 Trop I [Troponin I] Stat 04/18/20 11:01 EKG-12 Lead Stat Discontinued Medications Sodium Chloride (Normal Saline 0.9%) 1,000 mls @ 1,000 mls/hr IV CONT YANELIS Last Infusion: 04/18/20 11:26 Dose: 0 mls/hr Documented by: Admin: 04/18/20 09:38 Dose: 1,000 mls/hr Documented by: LAUREN Nitroglycerin (Nitrostat) 0.4 mg SL NOW ONE Stop: 04/18/20 09:25 Last Admin: 04/18/20 09:39 Dose: 0.4 mg Documented by: LAUREN Vital Signs Vital signs: Vital Signs - 8 hr 04/18/20 11:00 04/18/20 11:07 04/18/20 11:08 Pulse Rate 90 87 Respiratory Rate 23 16 Blood Pressure 169/86 H 169/86 H Pulse Oximetry 98 97 04/18/20 11:30 04/18/20 12:00 Pulse Rate 94 H 96 H Respiratory Rate 14 15 Blood Pressure 122/58 L Pulse Oximetry 98 97 MDM - Chest Pain Lab Data Attestation: I reviewed the patient's lab results. Result diagrams: 04/18/20 09:25 04/18/20 09:25 Labs: Lab Results 04/18/20 04/18/20 04/18/20 Range/Units 09:25 09:25 11:00 WBC 4.2 L (4.5-11.0) X10^3/uL RBC 4.06 (4.0-5.2) X10^6/uL Hgb 12.1 (12.0-16.0) g/dL Hct 35.5 L (36-46) % MCV 87.5 (80-100) fL MCH 29.7 (26-34) PG MCHC 34.0 (30-36) % RDW 13.8 (11.6-14.8) % Plt Count 225 (150-400) X10^3/uL Neut % (Auto) 63.9 (50-75) % Lymph % (Auto) 29.6 (25-40) % [place] % (Auto) 5.2 (3-14) % Eos % (Auto) 0.3 L (2-4) % Baso % (Auto) 1.0 (0-2) % Neut # (Auto) 2700 (2224-3608) /uL Lymph # (Auto) 1200 (4385-1048) /uL [place] # (Auto) 200 (0-900) /uL Eos # (Auto) 0 (0-450) /uL Baso # (Auto) 0 (0-100) /uL Sodium 131 L (137-145) mmol/L Potassium 4.6 (3.4-5.1) mmol/L Chloride 95 L (98-107) mmol/L Carbon Dioxide 25 (22-32) mmol/L BUN 12 (7-17) mg/dL Creatinine 0.48 L (0.52-1.04) mg/dL Estimated GFR > 60.0 (>60) mL/min BUN/Creatinine Ratio 25.0 H (6-22) Glucose 347 H (70-100) mg/dL Calcium 10.1 (8.4-10.2) mg/dL Total Bilirubin 0.6 (0.2-1.3) mg/dL AST 45 H (14-36) IU/L ALT 40 H (<35) IU/L Alkaline Phosphatase 130 H (38-126) U/L Total Creatine Kinase 60 (30-135) U/L CK-MB (CK-2) TNP CK-MB (CK-2) Rel Index TNP Troponin I < 0.012 < 0.012 (0.01-0.034) ng/mL Total Protein 7.5 (6.3-8.2) g/dL Albumin 4.5 (3.5-5.0) g/dL Globulin 3.0 (1.7-4.1) g/dL Albumin/Globulin Ratio 1.5 (1.0-2.8) Lipase 37 (23-300) U/L ECG Data Attestation: I personally reviewed and interpreted this ECG as follows: Prior ECG tracings: available for review Interpretation: Normal sinus rhythm rate 95 p.r. interval 160 QRS [address] changes PVC noted EKG 2. Normal sinus rhythm rate 87 p.r. interval [address] changes T- wave inversions no PVC noted this time MDM Narrative Medical decision making narrative: The patient is noted to have frequent PVCs on the monitor. She was given nitroglycerin x1 which did help some with her chest discomfort. She was given IV fluids PVCs decreased repeat troponin is negative. Patient is overall feeling much better and feels ready and able to go home Discharge Plan Departure Patient Disposition: Home Clinical Impression: Beat, premature ventricular Discharge Date/Time: 04/18/20 12:20 Instructions: Premature Ventricular Beats Activity Restrictions/Additional Instructions: *You have been diagnosed with premature ventricular complexes *What to do: Your heart is noted to skip a beat, caffeine intake, alcohol and dehydration can all exacerbate this *Continue to take medications as directed *Follow up with your primary care provider in 2-3 days *Return to ER if you should have increasing chest pain and shortness of breath palpitations dizziness passing out or any new, worsening or concerning symptoms Prescriptions: No Action lamotrigine [Lamictal] 100 mg tablet 100 mg PO BID Qty: 180 RF: 0 citalopram 40 mg tablet 40 mg PO QDAY Qty: 30 RF: 11 hydroxyzine HCl 25 mg tablet 25 mg PO TID PRN (Reason: anxiety) Qty: 90 RF: 1 sucralfate [Carafate] 100 mg/mL suspension 10 ml PO QID Qty: 420 RF: 0 dicyclomine 20 mg tablet 20 mg PO QID Qty: 20 RF: 0 ondansetron HCl [Zofran] 4 mg tablet 4 mg PO Q6H PRN (Reason: nausea and vomiting) Qty: 12 RF: 0 diphenhydramine HCl [Benadryl] 25 mg capsule 25 mg PO Q6H PRN (Reason: nausea and vomiting) Qty: 20 RF: 0 hydrocodone-acetaminophen [[place]] 5-325 mg tablet 1 tab PO Q4-6H PRN (Reason: pain) Qty: 12 RF: 0 omeprazole 40 mg capsule,delayed release(DR/EC) 40 mg PO BID Qty: 60 RF: 0 Referrals: Yanick Dumont DO [Primary Care Provider] -
[2020-04-18] MEDS: SODIUM CHLORIDE 0.9% 1,000 ML 1000 ML IV (09:38)
[2020-04-18] MEDS: NITROGLYCERIN 0.4 MG SL TAB SL (09:39)
[2020-04-18 09:42] LABS: Add Manual Diff / Slide Review NO; Basophils Absolute Auto 0 /uL (0-100); Eosinophils Absolute Auto 0 /uL (0-450); Eosinophils Percent Auto 0.3 % (2-4); Hematocrit 35.5 % (36-46); Hemoglobin 12.1 g/dL (12.0-16.0); Lymphocytes Absolute Auto 1200 /uL (1100-4500); Lymphocytes Percent Auto 29.6 % (25-40); Mean Corpuscular Hemoglobin 29.7 PG (26-34); Mean Corpuscular Volume 87.5 fL (80-100); Monocytes Absolute Auto 200 /uL (0-900); Monocytes Percent Auto 5.2 % (3-14); Neutrophils Absolute Auto 2700 /uL (1500-7000); Neutrophils Percent Auto 63.9 % (50-75); Platelet Count 225 X10^3/uL (150-400); Red Blood Cell Count 4.06 X10^6/uL (4.0-5.2); Red Cell Distribution Width 13.8 % (11.6-14.8); White Blood Cell Count 4.2 X10^3/uL (4.5-11.0)
[2020-04-18 09:55] LABS: Alanine Aminotransferase 40 IU/L (<35); Albumin 4.5 g/dL (3.5-5.0); Albumin Globulin Ratio 1.5 (1.0-2.8); Alkaline Phosphatase 130 U/L (38-126); Aspartate Aminotransferase 45 IU/L (14-36); Bilirubin Total 0.6 mg/dL (0.2-1.3); Blood Urea Nitrogen 12 mg/dL (7-17); Calcium 10.1 mg/dL (8.4-10.2); Carbon Dioxide 25 mmol/L (22-32); Chloride 95 mmol/L (98-107); Creatine Kinase 60 U/L (30-135); Estimated Glomerular Filt Rate > 60.0 mL/min (>60); Glucose 347 mg/dL (70-100); HEMOLYSIS 16 (0-50); Lipase 37 U/L (23-300); Potassium 4.6 mmol/L (3.4-5.1); Sodium 131 mmol/L (137-145); Total Protein 7.5 g/dL (6.3-8.2)
[2020-04-18 10:06] LABS: Troponin I < 0.012 ng/mL (0.01-0.034)
[2020-04-18 11:29] LABS: Troponin I < 0.012 ng/mL (0.01-0.034)
== END 2020-04-18 12:20 | disposition home or self-care (01) ==
PROVIDERS: Emergency Provider Emergency Medicine; PCP Family Medicine
DX: I49.3 Ventricular premature depolarization (principal)
CPT/HCPCS: 36415; 71045; 80053; 82550; 83690; 84484; 85025; 93005; 93010; 96360; 96361; 99284

== ENCOUNTER → 2023-09-01 16:14 | Outpatient (CLI) | payer OTHER, MEDICAID, SELFPAY | PROVIDERS: PCP Family Medicine; Visit Provider Physician Assistant | DX: R10.9 Unspecified abdominal pain (principal) | CPT/HCPCS: 81002; 87077; 87086; 87186 ==

== ENCOUNTER → 2024-01-16 12:42 | Outpatient (CLI) | payer OTHER, MEDICAID, SELFPAY ==
[2024-01-16 13:45] LABS: Add Manual Diff / Slide Review NO; Basophils Absolute Auto 0 /uL (0-100); Basophils Percent Auto 1.1 % (0-2); Eosinophils Absolute Auto 0 /uL (0-450); Eosinophils Percent Auto 0.5 % (2-4); Hematocrit 37.4 % (36-46); Hemoglobin 12.7 g/dL (12.0-16.0); Lymphocytes Absolute Auto 1400 /uL (1100-4500); Lymphocytes Percent Auto 31.9 % (25-40); Mean Corpuscular HGB Conc 34.1 % (30-36); Mean Corpuscular Hemoglobin 29.8 PG (26-34); Mean Corpuscular Volume 87.3 fL (80-100); Monocytes Absolute Auto 300 /uL (0-900); Neutrophils Absolute Auto 2600 /uL (1500-7000); Neutrophils Percent Auto 60.5 % (50-75); Platelet Count 282 X10^3/uL (150-400); Red Blood Cell Count 4.28 X10^6/uL (4.0-5.2); Red Cell Distribution Width 13.8 % (11.6-14.8); White Blood Cell Count 4.3 X10^3/uL (4.5-11.0)
[2024-01-16 14:10] LABS: Alanine Aminotransferase 39 IU/L (<35); Albumin 4.3 g/dL (3.5-5.0); Albumin Globulin Ratio 1.4 (1.0-2.8); Alkaline Phosphatase 146 U/L (38-126); Aspartate Aminotransferase 27 IU/L (14-36); Bilirubin Total 0.8 mg/dL (0.2-1.3); Blood Urea Nitrogen 12 mg/dL (7-17); Calcium 9.5 mg/dL (8.4-10.2); Carbon Dioxide 24 mmol/L (22-32); Chloride 99 mmol/L (98-107); Cholesterol 197 mg/dL (140-199); Estimated Glomerular Filt Rate > 60 mL/min (>60); Globulin 3.1 g/dL (1.7-4.1); Glucose 336 mg/dL (70-100); HDL Cholesterol 61 mg/dL (40-60); HEMOLYSIS < 15 (0-50); LDL Cholesterol Calculated 113 mg/dL (<100); Potassium 3.9 mmol/L (3.4-5.1); Sodium 132 mmol/L (137-145); Total Protein 7.4 g/dL (6.3-8.2); Triglycerides 113 mg/dL (35-150)
[2024-01-16 17:37] LABS: Hemoglobin A1C% w Est Avg Glu 10.6 % (4.0-6.0)
[2024-01-20 13:46] LABS: Lamotrigine Lamictal 4.2 ug/mL (2.0-20.0)
== END ==
PROVIDERS: PCP Family Medicine; Referring Provider Family Medicine; Visit Provider Family Medicine
DX: F31.70 Bipolar disorder, currently in remission, most recent episode unspecified (principal); R73.09 Other abnormal glucose; R74.8 Abnormal levels of other serum enzymes; R03.0 Elevated blood-pressure reading, without diagnosis of hypertension; E66.9 Obesity, unspecified; Z83.3 Family history of diabetes mellitus; Z68.37 Body mass index [BMI] 37.0-37.9, adult
CPT/HCPCS: 80053; 80061; 80175; 83036; 85025

== ENCOUNTER → 2024-02-03 15:44 | Outpatient (CLI) | payer OTHER, MEDICAID, SELFPAY ==
--- NOTE | 2024-02-03 15:45 | DI.US.S_ITS ---
PROCEDURE: US ABDOMEN LIMITED INDICATIONS: Elevated liver enzymes; alcohol use. TECHNIQUE: Real-time focused scanning was performed of the abdomen, with image documentation. COMPARISON: [facility], CT, CT ABDOMEN PELVIS W CON, 03/17/2020, 20:11. FINDINGS: The liver demonstrates normal size. The liver demonstrates generalized mildly increased echogenicity. This decreases ultrasound sensitivity for detection of hepatic masses. The liver demonstrates an echogenic nonvascular focus that measures 3.8 x 1.9 x 4.1 cm, centrally adjacent to the lamar hepatis. Prior cholecystectomy. There is no biliary dilatation, the common bile duct measures 7-8 mm. The pancreas demonstrates a heterogeneous appearance. IMPRESSION: There is a hyperechoic nonvascular focus seen adjacent to the lamar hepatis within the liver. The appearance is nonspecific, although differential diagnosis includes a true mass versus hemangioma versus focal fatty infiltration. There is potential focal fatty infiltration seen at this site on a prior CT. - For further evaluation, please consider a dedicated liver protocol MRI without and with IV contrast (assuming that there is no contraindication to MRI). Mac row generalized increased liver echogenicity is seen, which may be related to generalized fatty infiltration or cirrhosis. Dictated by: Brian Burrell M.D. on 02/03/2024 at 15:28 Approved by: Brian Burrell M.D. on 02/03/2024 at 15:30
== END ==
PROVIDERS: PCP Family Medicine; Referring Provider Family Medicine; Visit Provider Family Medicine
DX: E11.69 Type 2 diabetes mellitus with other specified complication (principal); R74.8 Abnormal levels of other serum enzymes; E66.9 Obesity, unspecified; Z68.37 Body mass index [BMI] 37.0-37.9, adult; Z90.49 Acquired absence of other specified parts of digestive tract; Z78.9 Other specified health status
CPT/HCPCS: 76705

== ENCOUNTER → 2024-02-13 10:53 | Outpatient (CLI) | payer OTHER, MEDICAID, SELFPAY ==
--- NOTE | 2024-02-13 10:54 | DI.MRI.S_ITS ---
PROCEDURE: MR ABDOMEN LIVER PROTOCOL INDICATIONS: evaluate liver TECHNIQUE: Coronal HASTE, axial 2D FLASH in- and [id number]; axial breath-hold T2 FSE. Dynamic axial VIBE during the administration of contrast; post-contrast coronal VIBE or 2D FLASH with fat saturation from the hepatic dome to the iliac crests. Optional diffusion weighted imaging and ADC may be performed. COMPARISON: None. FINDINGS: Image quality: Diagnostic. Lung bases: Unremarkable. Liver: Focal signal dropout in segment 4 of the liver on the out of phase sequence, representing a region of focal fat deposition. This corresponds to the hyperechoic region seen on comparison ultrasound. Gallbladder: Absent. Biliary ducts: No biliary dilation. Pancreas: No ductal dilation. Spleen: Size is within normal limits. Adrenal Glands: No adrenal nodules. Kidneys and Ureters: No hydronephrosis. No solid mass. No complex renal cystic lesion which requires follow up. Stomach and Bowel: Normal colonic caliber, without significant wall thickening. Peritoneum: No abnormal intraperitoneal fluid. No free air. Ventral Wall: No hernia. Abdominal Nodes: No retroperitoneal or mesenteric adenopathy by size criteria. Vessels: Aorta and inferior vena cava are normal in size. Bones: No aggressive osseous abnormality. IMPRESSION: Focal signal dropout in segment 4 of the liver on the out of phase sequence, representing a region of focal fat deposition. This corresponds to the hyperechoic region seen on comparison ultrasound. No solid liver mass identified. Dictated by: Lauri Herndon M.D. on 02/13/2024 at 12:21 Approved by: Lauri Herndon M.D. on 02/13/2024 at 12:27
== END ==
LOC: MRI 10:54
PROVIDERS: PCP Family Medicine; Referring Provider Family Medicine; Visit Provider Family Medicine
DX: R74.8 Abnormal levels of other serum enzymes (principal); K85.90 Acute pancreatitis without necrosis or infection, unspecified; Z90.49 Acquired absence of other specified parts of digestive tract
CPT/HCPCS: 74183; A9579

== ENCOUNTER → 2024-05-08 17:36 | Outpatient (CLI) | payer OTHER, MEDICAID, SELFPAY | PROVIDERS: PCP Family Medicine; Visit Provider Registered Nurse | DX: N39.0 Urinary tract infection, site not specified (principal) | CPT/HCPCS: 81002; 87077; 87086; 87186 ==

== ENCOUNTER 2025-03-15 13:09 | Emergency (ER) | payer OTHER, MEDICAID, SELFPAY ==
[2025-03-15] VITALS (10 sets, daily range): BP systolic 127–160; BP diastolic 69–81; PULSE 89–107; RESP 12–28; TEMP 36.6–37; O2SAT 95–100; BMI 32.3
--- NOTE | 2025-03-15 13:22 | DI.RAD.S_ITS ---
PROCEDURE: XR CHEST 1V INDICATIONS: Chest Pain TECHNIQUE: One view of the chest was acquired. COMPARISON: [facility], , CHEST 2 VIEW, 01/18/2018, 15:31. FINDINGS: Surgical changes and devices: None. Lungs and pleura: Mild pulmonary vascular congestion. No focal infiltrate. No pleural effusions or pneumothorax. Mediastinum: Mediastinal contours appear normal. Heart size is normal. Bones and chest wall: No suspicious bony lesions. Overlying soft tissues appear unremarkable. IMPRESSION: Mild congestion. No focal infiltrate, pleural effusion or pneumothorax. Dictated by: Jesus Abarca M.D. on 03/15/2025 at 13:44 Approved by: Jesus Abarca M.D. on 03/15/2025 at 13:45
--- NOTE | 2025-03-15 13:25 | ED.BACK ---
HPI - Back Pain/Injury General Chief Complaint: Back Pain/Injury Stated Complaint: really bad lower back pain right side Time Seen by Provider: 03/15/25 13:21 Source: patient History of Present Illness HPI Narrative: Patient here for low right greater than left back pain that does not radiate. No urinary complaints. No saddle paresthesia no leg or foot numbness tingling or weakness. No urinary or bowel incontinence or retention. No prior history of low back pain problems or MRI or therapy or surgery. Denies . No nausea or vomiting. Denies any abdominal pain. Pain is reproducible with movement. Ongoing for the past 3 days. Related Data Previous Rx's ?Medication ?Instructions ?Recorded hydroxyzine HCl 25 mg tablet 25 mg PO TID PRN anxiety #90 tabs 01/09/24 omeprazole 40 mg capsule,delayed 40 mg PO DAILY #90 caps 01/09/24 release metformin 1,000 mg tablet 1,000 mg PO BID #180 tabs 02/09/25 citalopram 40 mg tablet 40 mg PO DAILY #90 tabs 02/12/25 lamotrigine 100 mg tablet 200 mg (2 x 100 mg) PO DAILY #180 03/03/25 tabs baclofen 20 mg tablet 20 mg PO TID PRN pain (scale score 03/15/25 4-6) #20 tabs cefdinir 300 mg capsule 300 mg PO BID #10 caps 03/15/25 lidocaine 5 % topical patch 1 patch topical DAILY #15 ea 03/15/25 Allergies Allergy/AdvReac Type Severity Reaction Status Date / Time No Known Allergies Allergy Verified 05/26/24 11:13 Review of Systems Review of Systems Narrative: GENERAL: Negative chills, fatigue, malaise, fever, sweats. HEENT: Negative sinus pain, ear pain, sore throat RESPIRATORY: Negative dyspnea, cough CARDIOVASCULAR: Negative chest pain, palpitations GASTROINTESTINAL: Negative vomiting, nausea, abdominal pain : Negative dysuria, frequency, hematuria MUSCULOSKELETAL: Positive back, muscle or bony pain SKIN: Negative rash, skin lesions NEUROLOGIC: Negative weakness, numbness ROS Unobtainable: All systems reviewed & are unremarkable except as noted in HPI and below Patient History Medical History (Updated 03/15/25 @ 16:05 by Eliel Harding MD) UTI (urinary tract infection) Epigastric pain Fractured tooth Family history of diabetes mellitus Bipolar affective disorder in full remission Situational anxiety Pancreatitis (~2011) Bipolar disorder Chicken pox (1988) GERD (gastroesophageal reflux disease) Depression Substance abuse Surgical History Anesthesia Status post cholecystectomy (2011) Status post delivery (11/06/14) Status post delivery (06/01/01) Family History Brother Age: 38 Mental health problem Bipolar disorder Father Cancer Mental health problem Liver cancer Bipolar disorder Grandmother Age: 84 Hypertension High cholesterol Mother Age: 61 Hypertension High cholesterol Grandfather Cancer Colon cancer Grandmother Cancer Breast cancer Grandfather COPD (chronic obstructive pulmonary disease) Social History Smoking Status: Never smoker Smoking Status: Never smoker alcohol intake frequency: holidays/special occasions only Exam Narrative Exam Narrative: GENERAL: in no distress, not toxic not dyspneic HEAD: Normocephalic. EYES: Pupils equal round ENT: Mucous membranes moist. NECK: Trachea midline. CARDIOVASCULAR: Regular rate and rhythm RESPIRATORY: Clear to auscultation. Breath sounds equal bilaterally. No wheezes, rales, or rhonchi. GASTROINTESTINAL: Abdomen soft, non-tender EXTREMITIES: No gross deformities. BACK: No midline tenderness or step-off of the cervical thoracic or lumbar spine. There is reproducible right paralumbar right parathoracic tenderness. Increased pain with leaning forward back and do an side bends. No pain with bilateral straight leg raises. NEURO: AOx4. Clear speech strong bilateral patellar reflexes and ankle flexion-extension light touch intact to bilateral legs. SKIN: Warm and dry PSYCH: Not anxious, is cooperative Initial Vital Signs Initial Vital Signs: Vital Signs Temperature 97.8 F 03/15/25 13:14 Pulse Rate 107 H 03/15/25 13:14 Respiratory Rate 16 03/15/25 13:14 Blood Pressure 132/71 03/15/25 13:14 Pulse Oximetry 100 03/15/25 13:14 Oxygen Delivery Method Room Air 03/15/25 13:14 Course Orders Ordered: Discontinued Medications Cefdinir (Cefdinir 300 Mg Capsule) 300 mg PO NOW ONE Stop: 03/15/25 16:02 Last Admin: 03/15/25 16:05 Dose: 300 mg Documented By: YANET Sodium Chloride (Normal Saline 0.9%) 1,000 mls @ 1,000 mls/hr IV BOLUS ONE Stop: 03/15/25 14:23 Last Infusion: 03/15/25 14:39 Dose: Infused Documented By: Admin: 03/15/25 13:49 Dose: 1,000 mls/hr Documented By: BT Ketorolac Tromethamine (Ketorolac 30 Mg/Ml Vial) 15 mg IV NOW ONE Stop: 03/15/25 13:25 Last Admin: 03/15/25 13:49 Dose: 15 mg Documented By: DEBRA Vital Signs Vital signs: Vital Signs - 8 hr 03/15/25 13:14 03/15/25 13:25 03/15/25 13:26 Temperature 97.8 F Pulse Rate 107 H 96 H 95 H Respiratory Rate 16 Blood Pressure 132/71 Pulse Oximetry 100 98 98 Oxygen Delivery Method Room Air 03/15/25 13:26 03/15/25 13:30 03/15/25 13:30 Temperature Pulse Rate 92 H Respiratory Rate Blood Pressure 159/78 H 160/80 H Pulse Oximetry 99 Oxygen Delivery Method 03/15/25 13:49 03/15/25 13:49 03/15/25 14:00 Temperature Pulse Rate 89 91 H Respiratory Rate 12 20 Blood Pressure 148/76 H Pulse Oximetry 98 95 Oxygen Delivery Method 03/15/25 14:00 03/15/25 14:10 03/15/25 14:10 Temperature Pulse Rate 95 H Respiratory Rate 28 H Blood Pressure 150/72 H 138/70 Pulse Oximetry Oxygen Delivery Method 03/15/25 14:30 03/15/25 14:30 03/15/25 15:00 Temperature Pulse Rate 95 H Respiratory Rate 19 Blood Pressure 129/70 127/69 Pulse Oximetry 98 Oxygen Delivery Method 03/15/25 15:00 Temperature Pulse Rate 94 H Respiratory Rate 18 Blood Pressure Pulse Oximetry 98 Oxygen Delivery Method MDM - Back Pain/Injury Lab Data 03/15/25 13:32 03/15/25 13:32 Labs: Lab Results 03/15/25 03/15/25 Range/Units 13:32 14:10 WBC 5.3 (4.5-11.0) X10^3/uL RBC 4.41 (4.0-5.2) X10^6/uL Hgb 13.1 (12.0-16.0) g/dL Hct 38.2 (36-46) % MCV 86.6 (80-100) fL MCH 29.7 (26-34) PG MCHC 34.2 (30-36) % RDW 14.3 (11.6-14.8) % Plt Count 195 (150-400) X10^3/uL Neut % (Auto) 69.5 (50-75) % Lymph % (Auto) 24.2 L (25-40) % [place] % (Auto) 4.8 (3-14) % Eos % (Auto) 0.3 L (2-4) % Baso % (Auto) 1.2 (0-2) % Neut # (Auto) 3700 (0641-7834) /uL Lymph # (Auto) 1300 (5699-3129) /uL [place] # (Auto) 300 (0-900) /uL Eos # (Auto) 0 (0-450) /uL Baso # (Auto) 100 (0-100) /uL Sodium 130 L (137-145) mmol/L Potassium 4.2 (3.4-5.1) mmol/L Chloride 92 L (98-107) mmol/L Carbon Dioxide 27 (22-32) mmol/L BUN 8 (7-17) mg/dL Creatinine 0.58 (0.52-1.04) mg/dL Estimated GFR > 60 (>60) mL/min BUN/Creatinine Ratio 13.8 (6-22) Glucose 227 H (70-99) mg/dL Calcium 8.9 (8.4-10.2) mg/dL Total Bilirubin 2.4 H (0.2-1.3) mg/dL AST 309 H (14-36) IU/L ALT 178 H (<35) IU/L Alkaline Phosphatase 104 (38-126) U/L Total Protein 7.4 (6.3-8.2) g/dL Albumin 4.5 (3.5-5.0) g/dL Globulin 2.9 (1.7-4.1) g/dL Albumin/Globulin Ratio 1.6 (1.0-2.8) Serum , Qual Negative (Negative) Urine Color Red Urine Appearance Turbid Urine pH 8.0 (4.5-8.0) Ur Specific [place] 1.020 (1.000-1.035) Urine Protein 3+ H (Negative) Urine Glucose (UA) Negative (Negative) g/dL Urine Ketones 2+ H (NEGATIVE) Urine Occult Blood 3+ H (Negative) Urine Nitrate Negative (Negative) Urine Bilirubin Negative (NEGATIVE) Urine Urobilinogen 4.0 H (0.2) E.U./dL Ur Leukocyte Esterase Trace H (NEGATIVE) Urine RBC >100/hpf H (0-5/HPF) Urine WBC 30-100/hpf H (0-5/HPF) Ur Squamous Epith Cells 1-5 /hpf (0-5/HPF) Urine Bacteria Many (>30) H (None) Ur Culture Indicated? Specimen cultured Vol Urine Centrifuged 10ml (spun) Imaging Data Extremity x-ray #1: Radiologist's Impression: [address] [address] XRay Report Signed Patient: Nivia Magana MR#: [id number] : 1980 Acct:[id number] Age/Sex: 44 / F Date of Service: 03/15/25 Loc: ED Accession Number: [id number] Procedure: XR lumbar spine 2-3V Ordering Provider: Eliel Harding MD PROCEDURE: XR LUMBAR SPINE 2-3V INDICATIONS: Low back pain TECHNIQUE: 3 views of the lumbar spine were acquired. COMPARISON: None. FINDINGS: Bones: 5 [id number] vertebrae are present. There is normal bony alignment. No vertebral body compression fractures. No suspicious bony lesions. Soft tissues: Overlying bowel gas pattern is normal. No suspicious soft tissue calcifications. IMPRESSION: No acute compression fracture or spondylolisthesis in lumbar spine. Dictated by: Jesus Abarca M.D. on 03/15/2025 at 13:45 Approved by: Jesus Abarca M.D. on 03/15/2025 at 13:45 Chest x-ray: Radiologist's Impression: [address] [address] XRay Report Signed Patient: Nivia Magana MR#: [id number] : 1980 Acct:[id number] Age/Sex: 44 / F Date of Service: 03/15/25 Loc: ED Accession Number: [id number] Procedure: XR chest 1V Ordering Provider: Eliel Harding MD PROCEDURE: XR CHEST 1V INDICATIONS: Chest Pain TECHNIQUE: One view of the chest was acquired. COMPARISON: [facility], , CHEST 2 VIEW, 01/18/2018, 15:31. FINDINGS: Surgical changes and devices: None. Lungs and pleura: Mild pulmonary vascular congestion. No focal infiltrate. No pleural effusions or pneumothorax. Mediastinum: Mediastinal contours appear normal. Heart size is normal. Bones and chest wall: No suspicious bony lesions. Overlying soft tissues appear unremarkable. IMPRESSION: Mild congestion. No focal infiltrate, pleural effusion or pneumothorax. Dictated by: Jesus Abarca M.D. on 03/15/2025 at 13:44 Approved by: Jesus Abarca M.D. on 03/15/2025 at 13:45 [facility] Narrative Medical decision making narrative: Patient here for low right greater than left back pain that does not radiate. No urinary complaints. No saddle paresthesia no leg or foot numbness tingling or weakness. No urinary or bowel incontinence or retention. No prior history of low back pain problems or MRI or therapy or surgery. Denies . No nausea or vomiting. Denies any abdominal pain. Pain is reproducible with movement. Ongoing for the past 3 days. After history and exam, x-ray lumbar spine Toradol normal saline urinalysis CBC CMP. Exam is reassuring. No neuro deficits. No CT or MRI indicated at this time. [facility] Medical records reviewed: No recent visit for this complaint Differential considered: Includes but not limited to Lumbar strain degenerative disc disease sciatica UTI kidney stone pyelonephritis muscle strain Lab Test results independently reviewed as above. Pertinent findings: WBC 5.3 hemoglobin 13.1 sodium 130 potassium 4.2 bicarb 27 BUN 8 creatinine 0.58 AST 309 ALT 178 total bilirubin 2.4 negative , urinalysis positive leukocytes positive bacteria Imaging studies independently reviewed: Chest x-ray no acute finding x-ray lumbar spine no acute finding EKG normal sinus rhythm rate 92 normal EKG Consultations: None indicated at this time Re-evaluations: 3:24 p.m.. Patient feeling better. Pain has decreased to 4/10. I did review with her regarding alcohol use. will work on decreasing her consumption. Her back pain could be due to degenerative disc disease even though x-ray looks reassuring today. MRI of the would be more thorough. However I will prescribe her lidocaine patch and baclofen at this time and she does have family doctor to follow up with. Return precautions reviewed. She desires discharge home. 4:05 p.m.. Reviewed with patient results of urinalysis. She could be developing UTI and she does agree for antibiotics. However her low back pain may be separate source/musculoskeletal/degenerative disc disease/sciatica Discussion: Appropriate for discharge home. Exam is reassuring. Patient neurologically intact. No red flags. Laboratory results and x-ray results are reassuring. Pain is controlled. She desires discharge home. Diagnosis: Low back pain Discharge Plan Departure Patient Disposition: Home Clinical Impression: Acute UTI Acute low back pain Qualifiers: Back pain laterality: unspecified Sciatica presence: without sciatica Qualified Code(s): M54.50 - Low back pain, unspecified Instructions: DI for Low Back Pain, DI for Urinary Tract Infection (UTI) Activity Restrictions/Additional Instructions: Please do try to decrease your alcohol consumption. Your exam and laboratory studies and imaging studies are reassuring. It is possible that your developing a urinary tract infection. However, medications to help rear back pain has been sent to your pharmacy to continue. Return if worse if any questions or concerns. Antibiotics have been started and prescribed as well. Prescriptions: New baclofen 20 mg tablet 20 mg PO TID PRN (Reason: pain (scale score 4-6)) Qty: 20 0RF lidocaine 5 % adhesive patch,medicated 1 patch topical DAILY Qty: 15 0RF Rx Instructions: leave on most painful area for up to 12 hrs cefdinir 300 mg capsule 300 mg PO BID Qty: 10 0RF No Action hydroxyzine HCl 25 mg tablet 25 mg PO TID PRN (Reason: anxiety) Qty: 90 1RF omeprazole 40 mg capsule,delayed release(DR/EC) 40 mg PO DAILY Qty: 90 0RF metformin 1,000 mg tablet 1,000 mg PO BID Qty: 180 1RF citalopram 40 mg tablet 40 mg PO DAILY Qty: 90 0RF lamotrigine 100 mg tablet 200 mg PO DAILY Qty: 180 1RF Referrals: Cathy Lee DO [Primary Care Provider, Family Practice] Stand Alone Forms: Patient Portal/API
--- NOTE | 2025-03-15 13:28 | EKG_ITS ---
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
[2025-03-15 13:40] LABS: Add Manual Diff / Slide Review NO; Basophils Absolute Auto 100 /uL (0-100); Basophils Percent Auto 1.2 % (0-2); Eosinophils Absolute Auto 0 /uL (0-450); Eosinophils Percent Auto 0.3 % (2-4); Hematocrit 38.2 % (36-46); Hemoglobin 13.1 g/dL (12.0-16.0); Lymphocytes Absolute Auto 1300 /uL (1100-4500); Lymphocytes Percent Auto 24.2 % (25-40); Mean Corpuscular HGB Conc 34.2 % (30-36); Mean Corpuscular Hemoglobin 29.7 PG (26-34); Mean Corpuscular Volume 86.6 fL (80-100); Monocytes Absolute Auto 300 /uL (0-900); Monocytes Percent Auto 4.8 % (3-14); Neutrophils Absolute Auto 3700 /uL (1500-7000); Neutrophils Percent Auto 69.5 % (50-75); Platelet Count 195 X10^3/uL (150-400); Red Blood Cell Count 4.41 X10^6/uL (4.0-5.2); Red Cell Distribution Width 14.3 % (11.6-14.8); White Blood Cell Count 5.3 X10^3/uL (4.5-11.0)
[2025-03-15] MEDS: SODIUM CHLORIDE 0.9% 1,000 ML 1000 ML IV (13:49)
[2025-03-15] MEDS: KETOROLAC 30 MG/ML VIAL 15 MG IV (13:49)
[2025-03-15 13:50] LABS: Pregnancy Test Serum,Qual Negative (Negative)
[2025-03-15 13:51] LABS: Alanine Aminotransferase 178 IU/L (<35); Albumin 4.5 g/dL (3.5-5.0); Albumin Globulin Ratio 1.6 (1.0-2.8); Alkaline Phosphatase 104 U/L (38-126); Aspartate Aminotransferase 309 IU/L (14-36); BUN Creatinine Ratio 13.8 (6-22); Bilirubin Total 2.4 mg/dL (0.2-1.3); Blood Urea Nitrogen 8 mg/dL (7-17); Calcium 8.9 mg/dL (8.4-10.2); Carbon Dioxide 27 mmol/L (22-32); Chloride 92 mmol/L (98-107); Estimated Glomerular Filt Rate > 60 mL/min (>60); Globulin 2.9 g/dL (1.7-4.1); Glucose 227 mg/dL (70-99); HEMOLYSIS < 15 (0-50); Potassium 4.2 mmol/L (3.4-5.1); Sodium 130 mmol/L (137-145); Total Protein 7.4 g/dL (6.3-8.2)
[2025-03-15 15:35] LABS: Appearance Urine UA TURBID; Bilirubin Urine UA NEGATIVE (NEGATIVE); Color Urine UA RED; Glucose Urine UA NEGATIVE (Negative); Ketones Urine UA 2+ (NEGATIVE); Leukocyte Esterase Urine UA TRACE (NEGATIVE); Nitrite Urine UA NEGATIVE (Negative); Occult Blood Urine UA 3+ (Negative); Protein Urine UA 3+ (Negative)
[2025-03-15 15:41] LABS: Bacteria Urine Many (>30); Culture Indicated Urine Specimen Cultured; RBC Urine >100/HPF (0-5/HPF); Squamous Epithelial Cell Urine 1-5 /HPF (0-5/HPF); Urine Volume 10mL (spun); WBC Urine 30-100/HPF (0-5/HPF)
[2025-03-15] MEDS: CEFDINIR 300 MG CAPSULE PO (16:05)
== END 2025-03-15 16:16 | disposition home or self-care (01) ==
PROVIDERS: Emergency Provider Emergency Medicine; PCP Family Medicine
DX: N39.0 Urinary tract infection, site not specified (principal); M54.50 Low back pain, unspecified; R07.9 Chest pain, unspecified
CPT/HCPCS: 36415; 71045; 72100; 80053; 81001; 84703; 85025; 87077; 87086; 87186; 93005; 96361; 96374; 99284; J1885

== ENCOUNTER → 2025-04-25 14:15 | Outpatient (CLI) | payer OTHER, SELFPAY | PROVIDERS: PCP Family Medicine; Visit Provider Chiropractor | DX: R30.0 Dysuria (principal); N94.9 Unspecified condition associated with female genital organs and menstrual cycle | CPT/HCPCS: 87077; 87086; 87186; 87210 ==

== ENCOUNTER → 2025-07-30 09:30 | Outpatient (CLI) | payer OTHER, SELFPAY ==
[2025-07-30 11:21] LABS: Add Manual Diff / Slide Review NO; Hematocrit 37.2 % (36-46); Hemoglobin 12.7 g/dL (12.0-16.0); Lymphocytes Absolute Auto 1400 /uL (1100-4500); Mean Corpuscular HGB Conc 34.0 % (30-36); Mean Corpuscular Hemoglobin 28.8 PG (26-34); Mean Corpuscular Volume 84.6 fL (80-100); Platelet Count 230 X10^3/uL (150-400)
[2025-07-30 11:55] LABS: Alanine Aminotransferase 26 IU/L (<35); Albumin 4.4 g/dL (3.5-5.0); Albumin Globulin Ratio 1.8 (1.0-2.8); Alkaline Phosphatase 82 U/L (38-126); Blood Urea Nitrogen 7 mg/dL (7-17); Calcium 9.5 mg/dL (8.4-10.2); Carbon Dioxide 25 mmol/L (22-32); Chloride 97 mmol/L (98-107); Cholesterol 157 mg/dL (140-199); Estimated Glomerular Filt Rate > 60 mL/min (>60); Globulin 2.5 g/dL (1.7-4.1); Glucose 337 mg/dL (70-99); HDL Cholesterol 33 mg/dL (40-60); HEMOLYSIS < 15 (0-50); Potassium 3.8 mmol/L (3.4-5.1); Sodium 132 mmol/L (137-145); Total Protein 6.9 g/dL (6.3-8.2); Triglycerides 128 mg/dL (35-150)
[2025-07-30 12:10] LABS: Hemoglobin A1C% w Est Avg Glu 13.1 % (4.0-6.0)
[2025-07-30 12:27] LABS: TSH w/ Reflex to FT4 1.88 uIU/mL (0.47-4.68)
[2025-07-31 02:08] LABS: Hepatitis A Antibody IgM Negative (Negative); Hepatitis B Core Antibody IgM Negative (Negative); Hepatitis C Antibody Non Reactive (Non Reactive)
[2025-07-31 03:11] LABS: CRP, High Sensitivity 0.49 mg/L (0.00-3.00)
== END ==
PROVIDERS: PCP Family Medicine; Referring Provider Family Medicine; Visit Provider Family Medicine
DX: R63.4 Abnormal weight loss (principal); E11.69 Type 2 diabetes mellitus with other specified complication; E66.9 Obesity, unspecified; Z83.3 Family history of diabetes mellitus; F31.76 Bipolar disorder, in full remission, most recent episode depressed; K85.90 Acute pancreatitis without necrosis or infection, unspecified; R74.8 Abnormal levels of other serum enzymes; Z68.37 Body mass index [BMI] 37.0-37.9, adult
CPT/HCPCS: 36415; 80053; 80061; 80074; 83036; 84443; 85025; 85651; 86140

== ENCOUNTER → 2025-08-02 11:40 | Outpatient (CLI) | payer OTHER, SELFPAY ==
[2025-08-04 11:10] LABS: Lamotrigine Lamictal 2.1 ug/mL (2.0-20.0)
== END ==
PROVIDERS: PCP Family Medicine; Referring Provider Family Medicine; Visit Provider Family Medicine
DX: E11.69 Type 2 diabetes mellitus with other specified complication (principal); E66.9 Obesity, unspecified
CPT/HCPCS: 36415; 80175

== ENCOUNTER → 2025-08-12 13:17 | Outpatient (CLI) | payer OTHER, SELFPAY ==
--- NOTE | 2025-08-12 13:19 | DI.US.S_ITS ---
PROCEDURE: US ABDOMEN LIMITED
== END ==
LOC: US 13:18
PROVIDERS: PCP Family Medicine; Referring Provider Family Medicine; Visit Provider Family Medicine
DX: R74.8 Abnormal levels of other serum enzymes (principal); Z87.19 Personal history of other diseases of the digestive system; Z90.49 Acquired absence of other specified parts of digestive tract
CPT/HCPCS: 76705